=== PATIENT | male | born 1960 | race Caucasian/White ===

== ENCOUNTER 2020-01-23 16:13 | Emergency (ER) | payer BC ==
[~2020-01-23] VITALS: Ht 182.9 cm; Wt 95.5 kg
[2020-01-23 16:16] VITALS: TEMP 98.2
[2020-01-23 16:27] LABS: BASO # 0.1 (0.0-0.2); BASO % 0.4 % (0.0-2.0); EOS % 0.2 % (0-4.0); GRAN # 8.5 (1.4-6.5); GRAN % 68.1 % (42.2-75.2); HEMATOCRIT 47.4 % (42.0-52.0); HEMOGLOBIN 16.2 g/dl (13.5-18.0); LYMPH # 2.6 (1.2-3.4); LYMPH % 20.5 % (20.0-51.0); MEAN CELL VOLUME 89 fl (80.0-100.0); MEAN CORPUSCULAR HEMOGLOBIN 31 pg (27.0-31.0); MEAN CORPUSCULAR HGB CONC 34 g/dl (33.0-37.0); MEAN PLATELET VOLUME 10.8 fl (7.4-10.4); MONO # 1.3 (0.1-0.6); MONO % 10.5 % (1.7-9.3); PLATELET COUNT 222 K/mm3 (130-400)
[2020-01-23 16:36] LABS: INR 1.1 (0.8-3.0); PROTHROMBIN TIME 12.3 SECONDS (9.7-12.8)
[2020-01-23] MEDS ORDERED: TENORMIN 5050 MG/TAB PO (16:37)
[2020-01-23 16:38] LABS: PARTIAL THROMBOPLASTIN TIME 24.4 SECONDS (26.0-37.0)
[2020-01-23] MEDS ORDERED: LIPITOR20 MG PO (16:38)
[2020-01-23 16:39] LABS: ALANINE AMINOTRANSFERASE 20 U/L (4-49); ALBUMIN 4.5 gm/dL (3.5-5.0); ALKALINE PHOSPHATASE 68 U/L (50-136); ANION GAP 12 mmol/L (7-16); AST,SGOT 27 U/L (15-37); BILIRUBIN,TOTAL 0.7 mg/dL (0.0-1.0); BLOOD UREA NITROGEN 21 mg/dL (9-20); CALCIUM 9.5 mg/dL (8.4-10.2); CARBON DIOXIDE 27 mmol/L (22-30); CHLORIDE 105 mmol/L (98-107); CREATININE, serum 1.11 (0.66-1.25); GLUCOSE 139 mg/dL (74-106); LIPASE 140 U/L (23-300); POTASSIUM 3.4 mmol/L (3.4-5.0); SODIUM 143 mmol/L (137-145); TOTAL PROTEIN 7.5 gm/dL (6.4-8.2)
[2020-01-23 16:58] LABS: TROPONIN-I < 0.012 ng/mL (0.000-0.035)
[2020-01-23 17:07] VITALS: BP 128/90; PULSE 57
== END 2020-01-23 17:05 | disposition short-term general hospital (02) ==
LOC: COL.ER 16:13 → EDBD 16:15 → COL.ER 17:05
PROVIDERS: Emergency Medicine
DX: I21.3 ST elevation (STEMI) myocardial infarction of unspecified site (principal); I10 Essential (primary) hypertension; E78.00 Pure hypercholesterolemia, unspecified
CPT/HCPCS: J1644; J2270; J2405; J3101